=== PATIENT | female | born 1950 | race African-American/Black ===

== ENCOUNTER 2017-12-12 12:20 | Inpatient (IN) | payer OTHER ==
[~2017-12-12] VITALS: Ht 165.1 cm; Wt 56.5 kg
[2017-12-12 12:25] VITALS: Ht 165.1 cm; Wt 56.5 kg
[2017-12-12 12:55] LABS: BASOPHIL % 0.6 % (0-2); PLATELET COUNT 250 x10^3mcL (130-400); RED CELL DISTRIBUTION WIDTH 13.8 % (11.5-14.5)
[2017-12-12 13:24] LABS: ALBUMIN 4.3 g/dL (3.4-5.0); ALKALINE PHOSPHATASE 63 U/L (46-116); ALT/SGPT 82 U/L (14-59); AST/SGOT 62 U/L (15-37); BILIRUBIN TOTAL 0.78 mg/dL (0.20-1.00); CALCIUM 10.5 mg/dL (8.5-10.1); CARBON DIOXIDE 17.7 mmol/L (21-32); CHLORIDE SERUM 91 mmol/L (98-107); CREATININE SERUM 0.9 mg/dL (0.6-1.0); GFR1 > 60 mL/min; GLUCOSE SERUM 212 mg/dL (74-106); LIPASE 102 IU/L (73-393); SODIUM SERUM 129 mmol/L (136-145)
[2017-12-12 13:29] LABS: POTASSIUM SERUM 2.3 mmol/L (3.5-5.1); TOTAL PROTEIN, SERUM 8.8 g/dL (6.4-8.2)
[2017-12-12] MEDS ORDERED: BENAZEPRIL HCL PO (14:06)
[2017-12-12] MEDS ORDERED: LIPI20 PO (14:06)
[2017-12-12] MEDS ORDERED: FOSAMAX70 M1 PO (14:07)
[2017-12-12] MEDS ORDERED: ZOLOFT50 MG PO (14:07)
[2017-12-12] MEDS ORDERED: ZANTAC 150150 MG PO (14:07)
[2017-12-12] MEDS ORDERED: ULTRAM50 MG PO (14:07)
[2017-12-12] MEDS ORDERED: ELIQUIS5 MG PO (14:07)
[2017-12-12] MEDS ORDERED: ALLEGRA ALLERG180 M1 PO (14:07)
[2017-12-12] MEDS ORDERED: AMIODARONE HCL200 MG PO (14:08)
[2017-12-12] MEDS ORDERED: METOPROLOL TART25 M1 PO (14:08)
[2017-12-12] MEDS ORDERED: RESTORIL30 MG PO (14:08)
[2017-12-12 15:03] VITALS: BP 165/112
[2017-12-12 17:30] VITALS: BP 183/95
[2017-12-12 22:20] VITALS: BP 185/92
[2017-12-13 05:52] VITALS: BP 107/66
[2017-12-13 06:23] LABS: BASOPHIL % 0.1 % (0-2); PLATELET COUNT 239 x10^3mcL (130-400); RED CELL DISTRIBUTION WIDTH 14.1 % (11.5-14.5)
[2017-12-13 06:34] LABS: ALBUMIN 4.1 g/dL (3.4-5.0); BILIRUBIN TOTAL 0.6 mg/dL (0.20-1.00); CALCIUM 9.9 mg/dL (8.5-10.1); CARBON DIOXIDE 27.1 mmol/L (21-32); CREATININE SERUM 1.4 mg/dL (0.6-1.0); MAGNESIUM 1.7 mg/dL (1.8-2.4); POTASSIUM SERUM 5.5 mmol/L (3.5-5.1)
[2017-12-13 06:47] LABS: TOTAL PROTEIN, SERUM 8.7 g/dL (6.4-8.2)
[2017-12-13 08:04] VITALS: BP 105/58; BP 108/58
[2017-12-13 12:02] VITALS: BP 105/60
[2017-12-13 13:18] VITALS: BP 105/60
== END 2017-12-13 14:20 | disposition home or self-care (01) | DRG 392 ==
LOC: ED 12:20 → DU 13:54
PROVIDERS: Emergency Medicine; Internal Medicine Pulmonary Disease
DX: A08.4 Viral intestinal infection, unspecified (principal); E87.1 Hypo-osmolality and hyponatremia; I24.8 Other forms of acute ischemic heart disease; E87.6 Hypokalemia; I48.91 Unspecified atrial fibrillation; R73.9 Hyperglycemia, unspecified; I10 Essential (primary) hypertension; M81.0 Age-related osteoporosis without current pathological fracture; F32.9 Major depressive disorder, single episode, unspecified; J30.2 Other seasonal allergic rhinitis; Z95.0 Presence of cardiac pacemaker; Z68.20 Body mass index [BMI] 20.0-20.9, adult
CPT/HCPCS: 82962; 83880; J2405; J2765; J3475; J3480; J7030; J7040; J8597; Q0092; Q0162

== ENCOUNTER 2018-05-27 16:23 | Inpatient (IN) | payer OTHER ==
[~2018-05-27] VITALS: Ht 165.1 cm; Wt 54.9 kg
[~2018-05-27 16:23] MED LIST: ALLEGRA ALLERG180 M1 PO; AMIODARONE HCL200 MG PO; BENAZEPRIL HCL PO; ELIQUIS5 MG PO; FOSAMAX70 M1 PO; LIPI20 PO; METOPROLOL TART25 M1 PO; RESTORIL30 MG PO; ULTRAM50 MG PO; ZANTAC 150150 MG PO; ZOLOFT50 MG PO
--- NOTE | 2018-05-27 16:36 | NUR ---
PT BIB AMBULANCE FROM HOME FOR C/O SEVER ABDOMINAL PAIN 01/01. PT STATES IT HURTS EVERYWHERE. PT STATES SHE HAD A SMALL BOWEL MOVEMENT THIS MORNING. PT HAS HX OF PACEMAKER PLACEMENT, HTN, BRAIN SURGERY. PT HAS FULY HEALED PORTER TO SIDE OF FACE/NECK AND UPPER CHEST. PT STATES SHE FEELS VERY COLD AND IS COOL TO THE TOUCH. PT WAS PROVIDED WITH 3 WARM BLANKETS. PT STATES SHE FEELS WEAK, BUT HAS ENOUGH STRENGTH TO AMBULATE IN BED AND PUSH HERSELF UP. PT STATES "MY LEGS ARE SO HEAVY THEY HURT I CANT MOVE THEM" "WHATS WRONG WITH MY LEGS". PT SISTER IS AT BEDSIDE WHO IS ALSO HER CYBER POLICY AND STRATEGY PLANNER. PT LIVES ALONE. PT HAS EQUAL AND LABORED CHEST RISE. PT IS CONNECTED TO CARDIAC MONITORS. ALTHOUG PT IS HYPERVENTILATING PT 02 SAT IS AT 100% ON RA. PT IS A &O X 4 AND SPEECH IS CLEAR. PT DENIES ANY ALLERGIES. NO OTHER DISTRESS AT THIS TIME.
[2018-05-27 17:17] LABS: BASOPHIL % 1.1 % (0-2); PLATELET COUNT 292 x10^3mcL (130-400)
[2018-05-27 17:21] LABS: RED CELL DISTRIBUTION WIDTH 15.3 % (11.5-14.5)
--- NOTE | 2018-05-27 17:26 | NUR ---
PT CURRENTLY USING BED NGUYEN. SISTER AT BEDSIDE
--- NOTE | 2018-05-27 17:26 | NUR ---
DR CHRISTIANSEN MADE AWARE OF NEW BP OF 185/104. AWAITING NEW ORDERS.
[2018-05-27 17:43] LABS: CALCIUM 10.9 mg/dL (8.5-10.1); CARBON DIOXIDE 21.9 mmol/L (21-32); CHLORIDE SERUM 98 mmol/L (98-107); CREATININE SERUM 0.9 mg/dL (0.6-1.0); GFR1 > 60 mL/min; GLUCOSE SERUM 177 mg/dL (74-106); POTASSIUM SERUM 4.2 mmol/L (3.5-5.1); SODIUM SERUM 136 mmol/L (136-145)
[2018-05-27 17:47] LABS: ALBUMIN 4.2 g/dL (3.4-5.0); ALKALINE PHOSPHATASE 77 U/L (46-116); ALT/SGPT 64 U/L (14-59); AST/SGOT 54 U/L (15-37); BILIRUBIN TOTAL 0.4 mg/dL (0.20-1.00); LIPASE 76 IU/L (73-393)
[2018-05-27 17:52] LABS: TOTAL PROTEIN, SERUM 8.8 g/dL (6.4-8.2)
--- NOTE | 2018-05-27 18:10 | NUR ---
DWAIN BENOIT SISTER/ CATHETER BUILDER
[2018-05-27 18:15] LABS: UA SPECIFIC GRAVITY 1.015 (1.005-1.035); microscopic required? YES; urine erythrocyte TRACE (NEGATIVE)
--- NOTE | 2018-05-27 18:19 | NUR ---
RFA 22G INFILTRATED AND REMOVED. NEW IV EST TO L HAND
--- NOTE | 2018-05-27 18:23 | NUR ---
INFORMED DR CHRISTIANSEN OF [facility]. DR CHRISTIANSEN AT BEDSIDE SPEAKING TO PT
--- NOTE | 2018-05-27 18:39 | NUR ---
MEDICATED WITH CATAPRES 0.1MG PO FOR HBP. WILL CONT TO MONITOR. CALLED [employer] FOR STAT CT PER DR ЕЛЕНА ROMO
--- NOTE | 2018-05-27 18:44 | NUR ---
CLINICAL SOCIAL WORKER AT BEDSIDE TAKING PT TO CT
--- NOTE | 2018-05-27 18:45 | NUR ---
PT TAKEN TO CT
--- NOTE | 2018-05-27 18:57 | NUR ---
PT RETURNED FROM CT. DR CHRISTIANSEN AT BEDSIDE
--- NOTE | 2018-05-27 19:00 | NUR ---
PT PROVIDED WARM COMPRESS FOR INFILTRATION SITE.
--- NOTE | 2018-05-27 19:04 | NUR ---
PT COMPLAINING OF NAUSEA. DR CHRISTIANSEN MADE AWARE.
--- NOTE | 2018-05-27 19:16 | NUR ---
REPORT GIVEN TO AMI BISHOP
--- NOTE | 2018-05-27 19:26 | NUR ---
RECEIVED REPORT FROM CANDI BISHOP. PT IN NAD. BREATHING EVEN AND UNLABORED. PT IS OBSERVED RESTING ON GURNEY IN POSITION OF COMFORT. PT REMOVED FROM BED NGUYEN, URINATED A MODERATE AMOUNT. PT C/O NAUSEA, MADE AWARE. WILL CONTINUE TO MONITOR.
--- NOTE | 2018-05-27 20:16 | NUR ---
ATTEMPTED TO FLUSH IV 24 G TO PT LEFT HAND. UNABLE TO FLUSH. REMOVED IV AT THIS TIME. BLEEDING CONTROLLED WITH PRESSURE. NO COMPLICATIONS.
[2018-05-27] MEDS ORDERED: NITROSTAT0.4 MG SL (20:46)
--- NOTE | 2018-05-27 20:50 | NUR ---
PT IS OBSERVED LAYING ON GURNEY IN POSITION OF COMFORT. EASILY AROUSABLE. PT IN NAD. BREATHING EVEN AND UNLABORED. CM AND [address] CHRISTIANSEN MADE AWARE OF PATIENT BLOOD PRESSURE OF 181/91, MAP 129. WILL CONTINUE TO MONITOR.
--- NOTE | 2018-05-27 21:48 | NUR ---
PT C/O WET GOWN AND BLOOD ON BLANKET FROM STARTING IV. SOILED GOWN AND BLANKET REMOVED. PT PROVIDED CLEAN AND DRY GOWN, BLANKET, AND JAYLENE. PT STATES "THATS BETTER" PT IN NAD. BREATHING EVEN AND UNLABORED. WILL CONTINUE TO MONITOR.
--- NOTE | 2018-05-27 21:52 | NUR ---
PT TO RADIOLOGY VIA [facility].
--- NOTE | 2018-05-27 22:03 | NUR ---
PT BACK FROM CT VIA [facility]. PT IN NAD AT THIS TIME.
--- NOTE | 2018-05-27 22:10 | NUR ---
LAB AT BEDSIDE
--- NOTE | 2018-05-27 22:48 | NUR ---
ASSISTED PT ONTO BED NGUYEN, PT URINATED LARGE AMOUNT. URINE SPILLED ONTO JAYLENE. SOILED JAYLENE REMOVED AND NEW CLEAN DRY JAYLENE PLACED. PT LAYING COMFORTABLY ON GURNEY WATCHING TV IN [facility].
--- NOTE | 2018-05-27 23:46 | NUR ---
PT OBSERVED LAYING ON GURNEY TALKING ON CELL PHONE. PT IN NAD. BREATHING EVEN AND UNLABORED. PT IS AWAKE, ALERT, AND ORIENTED. LIGHTS TURNED OFF FOR PATIENT COMFORT. WILL CONTINUE TO MONITOR.
--- NOTE | 2018-05-28 00:32 | NUR ---
PT OBSERVED SLEEPING ON GURNEY IN NAD. BREATHING EVEN AND UNLABORED. PT IS EASILY AROUSABLE. PT A&OX4, SPEAKING FULL CLEAR SENTENCES. CM AND [address] WILL CONTINUE TO MONITOR.
--- NOTE | 2018-05-28 01:16 | NUR ---
PT OBSERVED SLEEPING ON GURNEY IN POSITION OF COMFORT. PT IN NAD. BREATHING EVEN AND UNLABORED. PT IS EASILY AROUSABLE. WILL CONTINUE TO MONITOR.
--- NOTE | 2018-05-28 01:21 | NUR ---
REPORT GIVEN TO STEVENSON BISHOP.
--- NOTE | 2018-05-28 01:32 | NUR ---
CALLED REPORT TO REINA BISHOP EXT [phone]
--- NOTE | 2018-05-28 01:40 | NUR ---
RECEIVED PT FROM ED. PT AOX4. DENIES SMITH/DIZZINESS. ANSWERS QUESTIONS APPROPRIATELY. TELE #31, NSR, HR 61. DENIES CP/PRESSURE. PULSES PALPABLE, NO EDEMA NOTED. LUNG SOUNDS CLEAR, ON RA. DENIES SOB/DIFFICULTY BREATHING. BOWEL SOUNDS ACTIVE. VOIDS FREELY. GEN WEAKNESS. AMBULATORY. SKIN INTACT. IV TO RAC, INTACT AND PATENT. BED IN LOWEST POSITION. CALL LIGHT WITHIN REACH. WILL CONTINUE TO MONITOR.
[2018-05-28 01:58] VITALS: BP 141/85
--- NOTE | 2018-05-28 04:11 | NUR ---
RECEIVED CALL FROM LAB, PT TROPONIN 0.103. DR. REYES PAGED. AWAITING CALL BACK. PT DENIES CP. WILL CONTINUE TO MONITOR.
--- NOTE | 2018-05-28 05:02 | NUR ---
DR. REYES PAGED FOR THE SECOND TIME. AWAITING CALL BACK.
[2018-05-28 06:04] VITALS: BP 148/77
--- NOTE | 2018-05-28 06:21 | NUR ---
PT IN NO ACUTE DISTRESS. RR EVEN AND UNLABORED. DENIES CP/PRESSURE. WILL ENDORSE CARE TO ONCOMING SHIFT NURSE.
--- NOTE | 2018-05-28 07:24 | NUR ---
RECEIVED PT FROM SHIFT NURSE ASLEEP BUT AROUSABLE. NO ACUTE DISTRESS. HEPLOCK PATENT. BED IN LOW POSITION. CALL LIGHT WITHIN REACH. WILL CONTINUE TO MONITOR.
[2018-05-28 08:00] VITALS: BP 131/76
[2018-05-28 08:43] VITALS: Ht 165.1 cm; Wt 54.9 kg
--- NOTE | 2018-05-28 10:47 | NUR ---
PT A/OX4 SITTING UP IN BED WATCHING TV. NO ACUTE DISTRESS. DENIES ABD PAIN. CALL LIGHT WITHIN REACH. WILL CONTINUE TO MONITOR.
[2018-05-28 14:00] VITALS: BP 131/76
--- NOTE | 2018-05-28 14:21 | NUR ---
PT A/OX4 UPON DISCHARGE. DENIES ANY ABD PAIN. EDUCATION PROVIDED. INSTRUCTED TO FOLLOW UP WITH PCP. PT VERBALIZED UNDERSTANDING. IV REMOVED AND CATH INTACT. PERSONAL PELONGINGS TAKEN HOME. PT WILL INFORM NURSES STATION BEFORE LEAVING.
== END 2018-05-28 14:33 | disposition home or self-care (01) | DRG 392 ==
LOC: ED 16:23 → DU 05-28 00:36 → MU 05-28 00:36
PROVIDERS: Emergency Medicine; ADMIT Internal Medicine Pulmonary Disease
DX: R10.819 Abdominal tenderness, unspecified site (principal); I10 Essential (primary) hypertension; I48.2 Chronic atrial fibrillation; K21.9 Gastro-esophageal reflux disease without esophagitis; Z95.0 Presence of cardiac pacemaker; R10.13 Epigastric pain; Z79.01 Long term (current) use of anticoagulants
CPT/HCPCS: 83880; J2270; J2405; J2543; J3010; J7040; J7050; Q9967

== ENCOUNTER 2020-02-05 13:19 | Inpatient (IN) | payer OTHER ==
[~2020-02-05] VITALS: Ht 165.1 cm; Wt 56.4 kg
[~2020-02-05 13:19] MED LIST changes: +AMIODARONE HCL100 MG; -AMIODARONE HCL200 MG PO; +FLAGYL500 MG PO; +NITROSTAT0.4 MG SL
[2020-02-05 13:30] VITALS: Ht 165.1 cm; Wt 56.4 kg
--- NOTE | 2020-02-05 13:40 | NUR ---
SEIZURE PADS PLACE ALONG BED RAILS.
--- NOTE | 2020-02-05 13:46 | NUR ---
PT BIBA [facility] S/P SEIZURE. PT ARRIVED TO ED ALERT AND ORIENTED X4. NO TRAUMA NOTED, -ORAL TRAUMA. DENIES PAIN OR DISCOMFORT AT THIS TIME. UPON ASSESSMENT, STATES "I HAD A SEIZURE?" PER MEDIC, PT HAS A SEIZURE HX. PT RESIDES AT A [facility] AND CAREGIVER WITNESSED AN APPROX 3MIN TONIC CLONIC SEIZURE WHILE PT WAS LAYING ON HER BED. 911 WAS PROMPTLY CALLED. [facility] NAME WAS: [facility].
--- NOTE | 2020-02-05 14:48 | NUR ---
PT TO CT VIA [facility]
[2020-02-05 15:02] LABS: CARBON DIOXIDE 27.6 mmol/L (21-32); CHLORIDE SERUM 106 mmol/L (98-107); CREATININE SERUM 0.9 mg/dL (0.6-1.0); GLUCOSE SERUM 121 mg/dL (74-106); POTASSIUM SERUM 3.1 mmol/L (3.5-5.1); SODIUM SERUM 144 mmol/L (136-145)
[2020-02-05 15:05] LABS: PLATELET COUNT 168 x10^3mcL (130-400)
[2020-02-05 15:08] LABS: ALKALINE PHOSPHATASE 181 U/L (46-116); ALT/SGPT 54 U/L (14-59); AST/SGOT 71 U/L (15-37); BILIRUBIN TOTAL 0.86 mg/dL (0.20-1.00); TOTAL PROTEIN, SERUM 7.6 g/dL (6.4-8.2)
--- NOTE | 2020-02-05 15:15 | NUR ---
PT NOT ABLE TO URINATE AT THIS TIME.
[2020-02-05 15:16] LABS: RED CELL DISTRIBUTION WIDTH 16.7 % (11.5-14.5)
[2020-02-05 16:08] LABS: BAND NEUTROPHIL 0 % (0-10); BASOPHIL 0 % (0-2); MONOCYTE 5 % (0-7); SEGMENTED NEUTROPHILS 64 % (37-75)
[2020-02-05 16:11] LABS: rbc morphology (normal/abnorm) NORMAL (NORMAL)
--- NOTE | 2020-02-05 16:20 | NUR ---
PROVIDED PT WITH BSC. STATES SHE IS UNABLE TO URINATE AT THIS TIME
--- NOTE | 2020-02-05 16:55 | NUR ---
VERBAL ORDER FOR ROAD TEST BY DR. VOSS. PT ABLE TO AMBULATE WITH STEADY GAIT, NO SWAYING, NO JITTERY GAIT, PRIMARY NURSE JESSICA AND DR. VOSS NOTIFIED OF RESULTS.
--- NOTE | 2020-02-05 16:58 | NUR ---
AT BEDSIDE FOR POC. PT STATES HER SISTER WILL PICK HER UP.
[2020-02-05] MEDS ORDERED: LOTENSIN20 MG PO (18:08)
[2020-02-05] MEDS ORDERED: ELIQUIS2.5 MG PO (18:08)
[2020-02-05] MEDS ORDERED: TOPROL XL25 MG PO (18:09)
[2020-02-05 18:33] LABS: microscopic required? YES; urine erythrocyte NEGATIVE (NEGATIVE)
--- NOTE | 2020-02-05 18:43 | NUR ---
PT AWAITING TELE NEURO EVAL AT BEDSIDE. VERBALIZED UNDERSTANDING
[2020-02-05 19:00] LABS: AMPHETAMINE QUAL UR NONE DETECTED (See below)
--- NOTE | 2020-02-05 19:51 | NUR ---
RECEIVED REPORT FROM EDNA GILBERT. PT. ON BED VERBALLY RESPONDING AND COOPERATIVE. A, A,O X4. FIRST ENCOUNTER WITH PT. VSS. NO SEIZURE ACTIVITY NOTED.
[2020-02-05 21:42] VITALS: BP 152/76
--- NOTE | 2020-02-05 22:24 | NUR ---
PT RECIEVED FROM ER. A&O X4. POOR HISTORIAN. RR EVEN AND UNLABORED. PT COMPLAINS OF SMITH (PAIN 5/10). NSR TELE MONITOR #7. DENIES ANY CHEST PAIN. BED LOCKED AND LOWERED. NON SLIP SOCK ON PT. SEIZURE PRECATIONS IN PLACE. CALL LIGHT WITHIN REACH. WILL CONTINUE WITH PLAN OF CARE.
--- NOTE | 2020-02-06 00:40 | NUR ---
RECIEVED CRITICAL LAB VALUE TROPONIN 0.280 FROM LAB. PAGED AND MADE AWARE OF LAB VALUE. NO NEW ORDERS GIVEN. WILL CONTINUE TO MONITOR PT.
[2020-02-06 04:58] VITALS: BP 135/60
--- NOTE | 2020-02-06 06:31 | NUR ---
PATIENT RESTING IN BED WATCHING TV. RR EVEN AND UNLABORED. PT DENIES ANY PAIN AT THIS TIME. A&O X4. SEIZURE PRECAUTIONS IN PLACE. FALL PRECAUTIONS IN PLACE. ASPIATION PRECAUTIONS IN PLACE. IV CDI AND PATENT. BED LOCKED AND LOWERED. CALL LIGHT WITHIN REACH. WILL ENDORSE TO DAY SHIFT NURSE.
[2020-02-06 06:52] LABS: BASOPHIL % 0.4 % (0-2); PLATELET COUNT 167 x10^3mcL (130-400)
[2020-02-06 07:08] LABS: ALBUMIN 2.6 g/dL (3.4-5.0); ALKALINE PHOSPHATASE 149 U/L (46-116); ALT/SGPT 46 U/L (14-59); AST/SGOT 56 U/L (15-37); BILIRUBIN TOTAL 0.91 mg/dL (0.20-1.00); CALCIUM 9.7 mg/dL (8.5-10.1); CHLORIDE SERUM 108 mmol/L (98-107); CHOLESTEROL 163 mg/dL (<200); CHOLESTEROL/HDL RATIO 4.2; CREATININE SERUM 0.9 mg/dL (0.6-1.0); GLUCOSE SERUM 88 mg/dL (74-106); HDL CHOLESTEROL 39 mg/dL (40-60); MAGNESIUM 1.6 mg/dL (1.8-2.4); PHOSPHOROUS 2.4 mg/dL (2.5-4.9); POTASSIUM SERUM 3.4 mmol/L (3.5-5.1); SODIUM SERUM 143 mmol/L (136-145); TOTAL PROTEIN, SERUM 6.6 g/dL (6.4-8.2); TRIGLYCERIDES 78 mg/dL (<150)
[2020-02-06 07:23] LABS: RED CELL DISTRIBUTION WIDTH 16.8 % (11.5-14.5)
--- NOTE | 2020-02-06 07:40 | NUR ---
SEEN LAYING IN BED AWAKE, ALERT, ORIENTED TO SELF, PLACE AND TIME. DENIES PAIN. NO SOB NOTED ON ROOM AIR. GEN BODY WEAKNESS. ON REGULAR DIET. SE PRECAUTION MAINTAINED. NO ANY SZ ACTIVITY NOTED. S/L TO LT HAND INTACT AND PATENT. REORIENTATION PROVIDED. CALL LIGHT REINSTRUCTED AND PLACED WITHIN EASY REACH, SIDERAILS UP X2 WITH PADDED UP. BED ALARM ON.
--- NOTE | 2020-02-06 08:00 | NUR ---
SEEN SITTING UP FEEDING SELF WITH BREAKFAST, STATED VERY HUNGRY AND THE FOOD TASTE REALLY GOOD. NO ANY DISTRESS NOTED.
[2020-02-06 08:07] VITALS: BP 122/53
--- NOTE | 2020-02-06 09:45 | NUR ---
AM SCHEDULED MEDS GIVEN, TOLERATED WELL, NO ASPIRATION NOTED. K 3.4, KCL 40MEQ PO GIVEN.
--- NOTE | 2020-02-06 10:10 | NUR ---
BED ALARM WENT OFF, SEEN SITTING ON THE EDGE OF BED STATED WANTED TO GO TO BATHROOM. MINIMAL ASSISTED PROVIDED, SLOW/STEAD GAIT NOTED. HAD SMALL SOFT BM. ASSISTED BACK TO BED. DENIES PAIN. NO ANY SIEZURE NOTED. CALL LIGHT PLACED WITHIN EASY REACH. SIDERAILS UP X2. BED ALARM ON.
[2020-02-06 12:39] VITALS: BP 138/67
--- NOTE | 2020-02-06 13:57 | NUR ---
P.T. NOTES P.T. EVAL COMPLETED; REFER TO EVAL FOR DETAILS; UE=353/67 (SUPINE), 118/61 (SITTING), 109/53 (STANDING); HR=60; O2 SAT ROOM AIR=94%
[2020-02-06 16:00] VITALS: BP 125/68
--- NOTE | 2020-02-06 19:00 | NUR ---
NO ANY DISTRESS THROUGHOUT SHIFT. DENIES PAIN. BRP. HAD GOOD APPETITE. DENIES DIZZINESS. NO SEIZURE ACTITVITY THROUGHOUT SHIFT.
--- NOTE | 2020-02-06 19:36 | NUR ---
RECEIVED PATIENT FROM DAY SHIFT NURSE. PT SLEEPING IN BED. RR EVEN AND UNLABORED. NO S/SX OF DISTRESS NOTED. SEISURE PRECAUTIONS IN PLACE. FALL PRECAUTIONS IN PLACE. IV CDI. CALL LIGHT WITHIN REACH. WILL CONTIUE TO MONITOR.
[2020-02-06 19:54] VITALS: BP 143/47
--- NOTE | 2020-02-07 02:26 | NUR ---
PT SLEEPING IN BED. RR EVEN AND UNLABORED. NO S/SX OF DISTRESS. SEIZURE PRECAUTIONS IN PLACE. BED LOCKED AND LOWERED. CALL LIGHT WITHIN REACH. WILL CONTINUE TO MONITOR.
[2020-02-07 05:49] VITALS: BP 125/64
--- NOTE | 2020-02-07 07:04 | NUR ---
I HAVE REVIEWED THE DATA COLLECTION BY ORIENTEE (NAME): JOSHUA OLIVIER ENTERED ON (DATE/TIME):02/06/20 3613H I CONCUR WITH THE DATA AND ANY EXCEPTIONS OR COMMENTS ARE LISTED BELOW:
[2020-02-07 07:19] LABS: ALKALINE PHOSPHATASE 158 U/L (46-116); ALT/SGPT 49 U/L (14-59); AST/SGOT 66 U/L (15-37); BILIRUBIN TOTAL 0.55 mg/dL (0.20-1.00); CALCIUM 10.2 mg/dL (8.5-10.1); CARBON DIOXIDE 30.4 mmol/L (21-32); CHLORIDE SERUM 109 mmol/L (98-107); CREATININE SERUM 0.9 mg/dL (0.6-1.0); GLUCOSE SERUM 92 mg/dL (74-106); MAGNESIUM 1.9 mg/dL (1.8-2.4); PHOSPHOROUS 2.5 mg/dL (2.5-4.9); POTASSIUM SERUM 4.1 mmol/L (3.5-5.1); SODIUM SERUM 145 mmol/L (136-145); TOTAL PROTEIN, SERUM 6.6 g/dL (6.4-8.2)
[2020-02-07 07:20] LABS: ALBUMIN 2.4 g/dL (3.4-5.0)
--- NOTE | 2020-02-07 07:29 | NUR ---
PT SLEEPING IN BED. RR EVEN AND UNLABORED. NO S/SX OF ACUTE DISTRESS. IV CDI AND PATENT. BED LOCKED AND LOWERED. CALL LIGHT WITHIN REACH. WILL ENDORSE TO DAY SHIFT NURSE.
[2020-02-07 07:49] LABS: BASOPHIL % 0.4 % (0-2); PLATELET COUNT 139 x10^3mcL (130-400)
[2020-02-07 08:08] VITALS: BP 108/60
--- NOTE | 2020-02-07 08:27 | NUR ---
PT A/O X4, TELE#7,DENIES PAIN, HEADACHE, DIZZINESS. LUNG CTA, NO RESPIRATORY DISTRESS NOTED, BREATHING EVEN, UNLABORED. PERIPHERAL PULSES PALPABLE, NO EDEMA NOED, DENIES NUMBNESS/TINGLING. LAST BM YESTERDAY 02/06/20 NORMAL/FORMED. BOWEL ACITVE X4 QUADS, ABD SOFT AND TENDER, DENIES NAUSEA/VOMITTING.AMBULATE. VOID WITHOUT DISCOMFORT. MIDLINE ABD SCAR. IV ACCESS TO LH 20G, SALINE LOCK, PATENT. SEISURE [id number] IN PLACE. CALL LIGHT WITHIN REACH, BED AT LOWEST POSITION. INSTRUCT PT TO CALL FOR ASSISTANCE WHEN SHE GET UP. WILL CONTINUE TO MONITOR.
[2020-02-07 08:51] LABS: RED CELL DISTRIBUTION WIDTH 16.7 % (11.5-14.5)
[2020-02-07 12:23] VITALS: BP 143/74
[2020-02-07 16:55] VITALS: BP 129/67
--- NOTE | 2020-02-07 18:47 | NUR ---
PT AWAKE, ALERT AND ORIENTED. C/O ABDOMINAL PAIN 5/10, TYLENOL GIVEN AT 1830. BREATHING EVEN, UNLABORED. DENIES CHEST PAIN, SMITH, DIZZINESS. NO S/S OF ACUTE RESPIRATORY DISTRESS NOTED. PT ABLE TO TOLERATE HER DINNER MEAL. IV ACCESS TO LH, HL PATENT, NO S/S OF INFECTION/INFILTRATION. SEIZURE PRECAUTION IN PLACE. VS STABLE. SAFETY MEASURE IN PLACE, CALL LIGHT WITHIN REACH, BED AT LOWEST POSITION. INSTRUCTS PT TO CALL FOR ASSISTANCE WHEN SHE GET UP. WILL ENDORSE TO ELEMENTARY VOCAL MUSIC TEACHER NURSE
--- NOTE | 2020-02-07 19:19 | NUR ---
I HAVE REVIEWED THE DATA COLLECTION BY RN (NAME):MAURICE REDMOND. ENTERED ON (DATE/TIME):02/07/20, 7A-7P. I CONCUR WITH THE DATA AND ANY EXCEPTIONS OR COMMENTS ARE LISTED BELOW:
--- NOTE | 2020-02-07 19:38 | NUR ---
RECIEVED PT FROM DAY SHIFT NURSE. PT RESTING IN BED WATCHING TV. RR EVEN AND UNLABORED. DENIES ANY PAIN. A&O X4. NO S/SX OF ACUTE DISTRESS. BED LOCKED AND LOWERED. SEIZURE PRECAUTIONS IN PLACE. CALL LIGHT WITHIN REACH. WILL CONTINUE WITH PLAN OF CARE.
[2020-02-07 20:29] VITALS: BP 139/69
--- NOTE | 2020-02-08 01:36 | NUR ---
I HAVE REVIEWED THE DATA COLLECTION BY ORIENTEE (NAME): JOSHUA OLIVIER ENTERED ON (DATE/TIME): 02/07/2020 0015H I CONCUR WITH THE DATA AND ANY EXCEPTIONS OR COMMENTS ARE LISTED BELOW:
[2020-02-08 05:53] VITALS: BP 129/68
--- NOTE | 2020-02-08 06:42 | NUR ---
PT SLEEPING IN BED. RR EVEN AND UNLABORED. NO S/SX OF ACUTE DISTRESS. LH 20G IV SL CDI AND PATENT. BED LOCKED AND LOWERED. SEIZURE PRECAUTIONS IN PLACE. CALL LIGHT WITHIN REACH. WILL ENDORSE TO DAY SHIFT NURSE.
[2020-02-08 06:52] LABS: BASOPHIL % 0.4 % (0-2); PLATELET COUNT 133 x10^3mcL (130-400)
[2020-02-08 07:06] LABS: RED CELL DISTRIBUTION WIDTH 16.7 % (11.5-14.5)
[2020-02-08 07:53] LABS: ALKALINE PHOSPHATASE 160 U/L (46-116); ALT/SGPT 52 U/L (14-59); AST/SGOT 75 U/L (15-37); BILIRUBIN TOTAL 0.5 mg/dL (0.20-1.00); CALCIUM 9.5 mg/dL (8.5-10.1); CARBON DIOXIDE 29.7 mmol/L (21-32); CHLORIDE SERUM 109 mmol/L (98-107); CREATININE SERUM 0.8 mg/dL (0.6-1.0); GLUCOSE SERUM 107 mg/dL (74-106); MAGNESIUM 1.8 mg/dL (1.8-2.4); PHOSPHOROUS 2.5 mg/dL (2.5-4.9); POTASSIUM SERUM 3.5 mmol/L (3.5-5.1); SODIUM SERUM 144 mmol/L (136-145); TOTAL PROTEIN, SERUM 6.4 g/dL (6.4-8.2)
[2020-02-08 07:54] LABS: ALBUMIN 2.5 g/dL (3.4-5.0)
[2020-02-08 08:06] VITALS: BP 113/58
[2020-02-08] MEDS ORDERED: LEVETIRACET100 MG/M1 PO (10:28)
[2020-02-08 12:15] VITALS: BP 144/63
[2020-02-08] MEDS ORDERED: RES30 PO (15:07)
[2020-02-08 16:16] VITALS: BP 144/63
[2020-02-08 17:03] VITALS: BP 163/60
--- NOTE | 2020-02-08 17:58 | NUR ---
PATIENT STABLE FOR DISCHARGE. DISCHARGE INSTRUCTIONS AND PLAN OF CARE DISCUSSED AND GIVEN TO PATIENT. PATIENT INFORMED TO FOLLOW UP WITH PRIMARY CARE DOCTOR FOR REFERRAL TO [facility]. PATIENT VERBALIZED UNDERSTANDING. TELE BOX REMOVED AND IV DISCONTINUED.
== END 2020-02-08 18:24 | disposition home or self-care (01) | DRG 101 ==
LOC: ED 13:19 → DU 19:31
PROVIDERS: Emergency Medicine; ADMIT Hospitalist; ATTEND Hospitalist
DX: G40.909 Epilepsy, unspecified, not intractable, without status epilepticus (principal); I48.20 Chronic atrial fibrillation, unspecified; S26.90XA Unspecified injury of heart, unspecified with or without hemopericardium, initial encounter; E87.6 Hypokalemia; I10 Essential (primary) hypertension; M19.90 Unspecified osteoarthritis, unspecified site; Z87.891 Personal history of nicotine dependence; Z95.0 Presence of cardiac pacemaker; I49.5 Sick sinus syndrome; Z79.01 Long term (current) use of anticoagulants; Z20.828 Contact with and (suspected) exposure to other viral communicable diseases
CPT/HCPCS: 97112-GP; 97530-GP; G0378; J2405; J7030